=== PATIENT | female | born 1990 | race Caucasian/White ===

== ENCOUNTER 2018-03-29 01:15 | Emergency (ER) | payer OTHER ==
[~2018-03-29] VITALS: Ht 149.9 cm; Wt 47.7 kg
[2018-03-29 01:29] VITALS: BP 121/77
[2018-03-29 02:12] LABS: CLARITY,URINE CLEAR (Clear); COLOR,URINE STRAW (Yellow); GLUCOSE, URINE NEGATIVE (Neg); KETONES,URINE NEGATIVE (Neg); LEUKOCYTE ESTERASE ,URINE TRACE (Neg); NITRITES, URINE NEGATIVE (Neg); OCCULT BLOOD,URINE TRACE-INTACT (Neg); PH,URINE 5.5 (4.8-8.0); PROTEIN,URINE NEGATIVE (Neg); UROBILINOGEN,URINE 0.2 E.U/dL (0.2-1.0)
[2018-03-29 02:14] LABS: URINE HCG NEGATIVE (NEG)
[2018-03-29 02:28] LABS: UA COLLECTION TYPE VOIDED
[2018-03-29 02:30] LABS: BACTERIA,URINE 1+ /HPF (Neg); RBC,URINE 0-2 /HPF (0-2); SQUAMOUS EPITHELIAL CELL,UR FEW /LPF (FEW)
[2018-03-29] MEDS ORDERED: NITR100C6 PO (02:34)
[2018-03-29] MEDS ORDERED: nitrofuran/nitrofuran macrocrysal 100 MG capsule PO ONE (02:55)
== END 2018-03-29 02:56 | disposition home or self-care (01) ==
LOC: ER 01:16
DX: N39.0 Urinary tract infection, site not specified (principal); Z79.899 Other long term (current) drug therapy
CPT/HCPCS: 81001; 81025; 87077; 87088; 87186; 99284

== ENCOUNTER 2018-03-30 22:38 | Emergency (ER) | payer OTHER ==
[~2018-03-30] VITALS: Ht 149.9 cm; Wt 49.0 kg
[~2018-03-30 22:38] MED LIST: NITR100C6 PO
[2018-03-30] MEDS ORDERED: normal saline 1000ML IV soln IV ONE (22:45)
[2018-03-30] MEDS ORDERED: ciprofloxacin lact 400MG/200ML 200 ML IV SCH (22:45)
[2018-03-30] MEDS ORDERED: CefTRIAXone 2gm/D5W 50ml 50 ML IV ONE (23:00)
[2018-03-30] MEDS ORDERED: ciprofloxacin 250mg tablet PO ONE (23:05)
[2018-03-30 23:21] LABS: BASOPHILS # (AUTO) 0.1 X10'3 (0-0.2); BASOPHILS % (AUTO) 0.7 % (0-1); EOSINOPHILS # (AUTO) 0.1 X10'3 (0-0.9); EOSINOPHILS % (AUTO) 0.9 % (0-6); HEMATOCRIT 38.9 % (35.0-45.0); HEMOGLOBIN 13.1 g/dl (12.0-16.0); LYMPHOCYTES # (AUTO) 2.4 X10'3 (1.1-4.8); LYMPHOCYTES % (AUTO) 28.1 % (21-51); MEAN CORPUSCULAR HEMOGLOBIN 27.3 PG (27.0-31.0); MEAN CORPUSCULAR HGB CONC 33.5 % (33.0-36.5); MEAN CORPUSCULAR VOLUME 81.5 FL (78-98); MEAN PLATELET VOLUME 7.9 FL (7.4-10.4); MONOCYTES # (AUTO) 0.5 X10'3 (0-0.9); MONOCYTES % (AUTO) 5.4 % (2-12); NEUTROPHILS # (AUTO) 5.5 X10'3 (1.8-7.7); NEUTROPHILS % (AUTO) 64.9 % (42-75); PLATELET COUNT 217 X10'3 (140-440); RED BLOOD COUNT 4.78 X10'6 (4.20-5.60); RED CELL DISTRIBUTION WIDTH 12.7 % (11.5-14.5); WHITE BLOOD COUNT 8.6 X10'3 (4.5-11.0)
[2018-03-30 23:36] LABS: ALANINE AMINOTRANSFERASE 9 U/L (12-78); ALBUMIN 4.1 G/DL (3.4-5.0); ALBUMIN/GLOBULIN RATIO 1.1 (1.1-1.5); ALKALINE PHOSPHATASE 88 IU/L (46-116); ANION GAP 12 (8-16); ASPARTATE AMINO TRANSFERASE 15 U/L (10-37); BILIRUBIN,TOTAL 0.3 MG/DL (0.1-1.0); BLOOD UREA NITROGEN 13 MG/DL (7-18); BUN/CREATININE RATIO 15.7 (6.6-38.0); CALCIUM 8.8 MG/DL (8.5-10.1); CHLORIDE 100 MMOL/L (99-107); CREATININE 0.83 MG/DL (0.40-0.90); GLUCOSE 120 MG/DL (70-104); POTASSIUM 3.3 MMOL/L (3.5-5.1); SODIUM 137 MMOL/L (135-145); TOTAL CARBON DIOXIDE 24.7 MMOL/L (24-32); TOTAL PROTEIN 7.7 G/DL (6.4-8.2); eGFR 84 ML/MIN
[2018-03-31] MEDS ORDERED: CIPR-230 PO (00:01)
[2018-03-31 00:13] VITALS: BP 111/75
== END 2018-03-31 00:14 | disposition home or self-care (01) ==
LOC: ER 22:38
DX: N12 Tubulo-interstitial nephritis, not specified as acute or chronic (principal); Z79.2 Long term (current) use of antibiotics; Z79.899 Other long term (current) drug therapy
CPT/HCPCS: 36415; 80053; 83605; 85025; 87040; 96365; 99284; J0696; J0744

== ENCOUNTER 2018-08-31 11:56 | Emergency (ER) | payer OTHER ==
[~2018-08-31] VITALS: Ht 149.9 cm; Wt 50.3 kg
[2018-08-31 12:14] VITALS: BP 130/91
[2018-08-31] MEDS ORDERED: HYDROcodone/acetaminophen 5mg/325mg tablet PO STA (12:25)
[2018-08-31] MEDS ORDERED: HYDR-4353 PO (14:03)
[2018-08-31] MEDS ORDERED: ONDA4TAB6 PO (14:03)
== END 2018-08-31 15:07 | disposition home or self-care (01) ==
LOC: ER 11:57
DX: S52.592A Other fractures of lower end of left radius, initial encounter for closed fracture (principal); Z79.899 Other long term (current) drug therapy; V00.311A Fall from snowboard, initial encounter; Y93.23 Activity, snow (alpine) (downhill) skiing, snowboarding, sledding, tobogganing and snow tubing; Y92.89 Other specified places as the place of occurrence of the external cause; Y99.8 Other external cause status
CPT/HCPCS: 29125; 73090; 99284

== ENCOUNTER 2018-09-04 14:04 | Outpatient (CLI) | payer OTHER ==
[~2018-09-04 14:04] MED LIST changes: +HYDR-4353 PO; +ONDA4TAB6 PO
[2018-09-04 14:08] VITALS: BP 113/79
== END 2018-09-04 14:42 | disposition home or self-care (01) ==
LOC: ORTHO 14:04
PROVIDERS: ATTEND Nurse Practitioner Family
DX: S52.591A Other fractures of lower end of right radius, initial encounter for closed fracture (principal); V00.311A Fall from snowboard, initial encounter; Y93.23 Activity, snow (alpine) (downhill) skiing, snowboarding, sledding, tobogganing and snow tubing; Y92.89 Other specified places as the place of occurrence of the external cause; Y99.8 Other external cause status
CPT/HCPCS: 73110; G0463; 99213

== ENCOUNTER 2018-09-12 10:15 | Outpatient (CLI) | payer OTHER ==
[2018-09-12 10:14] VITALS: BP 116/75
== END 2018-09-12 10:54 | disposition home or self-care (01) ==
LOC: ORTHO 10:15
PROVIDERS: ATTEND Nurse Practitioner Family
DX: S52.591D Other fractures of lower end of right radius, subsequent encounter for closed fracture with routine healing (principal); V00.311D Fall from snowboard, subsequent encounter
CPT/HCPCS: 73110; 99213

== ENCOUNTER 2018-09-17 10:05 | Outpatient (CLI) | payer OTHER ==
[2018-09-17 10:04] VITALS: BP 122/77
== END 2018-09-17 10:53 | disposition home or self-care (01) ==
LOC: ORTHO 10:05
PROVIDERS: ATTEND Nurse Practitioner Family
DX: S52.591D Other fractures of lower end of right radius, subsequent encounter for closed fracture with routine healing (principal); V00.311D Fall from snowboard, subsequent encounter
CPT/HCPCS: 73110; 99213; A4590

== ENCOUNTER 2018-10-01 09:32 | Outpatient (CLI) | payer OTHER ==
[2018-10-01 09:39] VITALS: BP 126/88
== END 2018-10-01 10:17 | disposition home or self-care (01) ==
LOC: ORTHO 09:32
PROVIDERS: ATTEND Nurse Practitioner Family
DX: S52.591D Other fractures of lower end of right radius, subsequent encounter for closed fracture with routine healing (principal); W19.XXXD Unspecified fall, subsequent encounter
CPT/HCPCS: 73110; 99213; A4590

== ENCOUNTER 2018-10-22 11:08 | Outpatient (CLI) | payer OTHER ==
[~2018-10-22 11:08] MED LIST changes: -HYDR-4353 PO
[2018-10-22 11:09] VITALS: BP 133/80
== END 2018-10-22 11:42 | disposition home or self-care (01) ==
LOC: ORTHO 11:08
PROVIDERS: ATTEND Nurse Practitioner Family
DX: S52.591D Other fractures of lower end of right radius, subsequent encounter for closed fracture with routine healing (principal); V00.311D Fall from snowboard, subsequent encounter
CPT/HCPCS: 73110; 99213

== ENCOUNTER 2018-11-06 16:30 | Outpatient (CLI) | payer OTHER ==
[2018-11-06 16:31] VITALS: BP 124/80
== END 2018-11-06 16:34 | disposition home or self-care (01) ==
LOC: ORTHO 16:30
PROVIDERS: ATTEND Orthopaedic Surgery
DX: S52.591D Other fractures of lower end of right radius, subsequent encounter for closed fracture with routine healing (principal); X58.XXXD Exposure to other specified factors, subsequent encounter
CPT/HCPCS: 73110; 99213

== ENCOUNTER 2020-03-08 13:17 | Emergency (ER) | payer BC, OTHER, SELFPAY ==
[~2020-03-08] VITALS: Ht 149.9 cm; Wt 50.0 kg
[2020-03-08 13:31] VITALS: BP 120/86
== END 2020-03-08 13:43 | disposition home or self-care (01) ==
LOC: ER 13:18
DX: J02.9 Acute pharyngitis, unspecified (principal); R11.0 Nausea; Z20.828 Contact with and (suspected) exposure to other viral communicable diseases; Z79.899 Other long term (current) drug therapy
CPT/HCPCS: 36415; 99281

== ENCOUNTER 2021-05-21 14:23 | Emergency (ER) | payer BC, OTHER ==
[~2021-05-21] VITALS: Ht 149.9 cm; Wt 53.2 kg
[2021-05-21 14:36] VITALS: BP 133/83
[2021-05-21 23:06] LABS: URINE HCG NEGATIVE (NEG)
[2021-05-21 23:11] LABS: UA COLLECTION TYPE CLN CATCH MIDSTREAM
[2021-05-21 23:12] LABS: CLARITY,URINE SLIGHTLY CLOUDY (Clear); COLOR,URINE YELLOW (Yellow); GLUCOSE, URINE NEGATIVE (Neg); KETONES,URINE NEGATIVE (Neg); LEUKOCYTE ESTERASE ,URINE NEGATIVE (Neg); NITRITES, URINE NEGATIVE (Neg); OCCULT BLOOD,URINE LARGE (Neg); PROTEIN,URINE NEGATIVE (Neg); UROBILINOGEN,URINE 0.2 E.U/dL (0.2-1.0)
[2021-05-21 23:39] LABS: MUCUS STRANDS MANY /LPF (Neg); SQUAMOUS EPITHELIAL CELL,UR FEW /LPF (FEW)
[2021-05-21 23:40] LABS: BACTERIA,URINE FEW /HPF (Neg); WBC,URINE 0-4 /HPF (0-4)
[2021-05-21 23:52] LABS: MEAN CORPUSCULAR HGB CONC 32.5 g/dL (33.0-36.5); MEAN CORPUSCULAR VOLUME 82.2 FL (78-98); RED CELL DISTRIBUTION WIDTH 14.2 % (11.5-14.5)
[2021-05-21 23:54] LABS: BASOPHILS % (AUTO) 0.5 % (0-1); EOSINOPHILS # (AUTO) 0.1 X10'3 (0-0.9); EOSINOPHILS % (AUTO) 0.7 % (0-6); LYMPHOCYTES # (AUTO) 2.3 X10'3 (1.1-4.8); LYMPHOCYTES % (AUTO) 22.4 % (21-51); MEAN CORPUSCULAR HEMOGLOBIN 26.8 PG (27.0-31.0); MEAN PLATELET VOLUME 8.1 FL (7.4-10.4); MONOCYTES # (AUTO) 0.8 X10'3 (0-0.9); MONOCYTES % (AUTO) 7.9 % (2-12); NEUTROPHILS % (AUTO) 68.5 % (42-75); PLATELET COUNT 278 X10'3 (140-440); RED BLOOD COUNT 4.87 X10'6 (4.20-5.60); WHITE BLOOD COUNT 10.2 X10'3 (4.5-11.0)
== END 2021-05-22 01:03 | disposition home or self-care (01) ==
LOC: ER 14:24 → EEVIPCON 14:24 → ER 05-22 01:03
DX: O23.41 Unspecified infection of urinary tract in pregnancy, first trimester (principal); Z3A.01 Less than 8 weeks gestation of pregnancy
CPT/HCPCS: 36415; 76817; 81001; 81025; 84702; 85025; 86900; 86901; 93976; 99284; 99285

== ENCOUNTER 2021-08-22 03:30 | Outpatient (CLI) | payer OTHER | END 2021-08-22 23:59 | disposition home or self-care (01) | LOC: LAB 03:30 | PROVIDERS: ATTEND Internal Medicine Infectious Disease | DX: U07.1 COVID-19 (principal) | CPT/HCPCS: 87635; C9803 ==